=== PATIENT | male | born 1985 | race Caucasian/White ===

== ENCOUNTER 2019-03-19 07:47 | Emergency (ER) | payer OTHER, SELFPAY ==
[2019-03-19] MEDS ORDERED: TETANUS & DIPHTHERIA TOX,ADULT 0.5 ML VIAL ONE (08:22)
[2019-03-19] MEDS ORDERED: IBUPROFEN 400 MG TAB ONE (08:22)
[2019-03-19] MEDS ORDERED: ACETAMINOPHEN 325 MG TABLET ONE (08:22)
[2019-03-19] MEDS ORDERED: CLINDAMYCIN 900MG/D5W 900 MG/50 ML IVPB IV ONE (09:14)
[2019-03-19] MEDS ORDERED: NA CHLORIDE 0.9% 1,000 ML ONE (09:14)
[2019-03-19 09:24] LABS: Absolute Lymphocytes (CBC) 1.3 K/uL (0.7-4.9); Basophils % 0.5 % (0-1.3); Eosinophils % 1.5 % (0-4.4); Hematocrit 49.4 % (39.6-49.0); Lymphocytes % 17.7 % (15.3-44.8); MPV 9.6 fL (7.6-11.3); Monocytes % 7.7 % (3.3-12.3); RBC Red Blood Cell Count 5.78 M/uL (4.33-5.43)
[2019-03-19 09:34] LABS: BUN Blood Urea Nitrogen 12 mg/dL (7-18); Bicarbonate 26 mmol/L (21-32); Glucose Level 113 mg/dL (74-106); Sodium Level 142 mmol/L (136-145)
[2019-03-19 09:35] LABS: Protime INR 1.02
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
[2019-03-19] MEDS ORDERED: AMOX/K CLAV 875 MG TAB ONE (11:23)
== END 2019-03-19 11:47 | disposition home or self-care (01) ==
LOC: ER 07:47
PROC: 2W3CX1Z Immobilization of Right Lower Arm using Splint (ICD-10-PCS; principal; 2019-03-19)
DX: S61.451A Open bite of right hand, initial encounter (principal); Y04.0XXA Assault by unarmed brawl or fight, initial encounter; Z23 Encounter for immunization; I10 Essential (primary) hypertension
CPT/HCPCS: 36415; 80048; 85025; 85610; 85730; 87040; 90471; 90714; 96365; 96366; 99284; J7030